=== PATIENT | female | born 1985 | race Caucasian/White ===

== ENCOUNTER 2021-09-30 13:11 | Emergency (ER) | payer OTHER, SELFPAY ==
[2021-09-30 14:51] VITALS: BP 145/74; PULSE 101; RESP 18; TEMP 37.2; O2SAT 99; BMI 30.1
[2021-09-30 15:57] LABS: COVID-19 Test Negative (Negative)
--- NOTE | 2021-09-30 15:58 | ED_ITS ---
HPI - Ear Problem General Chief complaint: Ear Problems Stated complaint: blocked ears Time Seen by Provider: 09/30/21 15:48 Source: patient Mode of arrival: ambulatory Limitations: no limitations History of Present Illness HPI Narrative: 36-year-old female who presents emergency department for evaluation of bilateral ear pain with drainage from both ears. The patient states that she uses Q-tips frequently in both ears. She states she was cleaning her ears today notice that there was a discharge in she could not hear to both ears. She also states she was having severe pain in both ears, she describes as a constant, sharp pain. The pain is 10/10. She does have decreased hearing in both ears. She denied fever, chills, rhinorrhea, sore throat, chest pain, shortness of breath. Related Data Previous Rx's Medication Instructions Recorded amoxicillin 500 mg capsule 1,000 mg PO BID 10 Days #40 cap 09/30/21 ciprofloxacin 0.3 %-dexamethasone 4 drp OTIC (EARS) BID 10 Days #7.5 09/30/21 0.1 % ear drops,suspension ml (Ciprodex) oxycodone 5 mg tablet 5 mg PO Q4H PRN #10 tab 09/30/21 Allergies Allergy/AdvReac Type Severity Reaction Status Date / Time No Known Allergies Allergy Verified 09/30/21 14:50 [No Known Allergies*] Review of Systems Review of Systems: Yes all other systems are reviewed and are negative [facility] Past Medical History [facility] Narrative: Past medical history: None. 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 Social history: She denies tobacco, alcohol and drug use. Medical History (Updated 09/30/21 @ 16:06 by Arnol Barron MD) Scoliosis Social History Social History Advance Directives: No Advance Directives Information Provided: No Patient : No Physical Exam Vital Signs: Vital Signs: Last Vital Signs Temp 99.0 F 09/30/21 14:51 Pulse 101 H 09/30/21 14:51 Resp 18 09/30/21 14:51 BP 145/74 H 09/30/21 14:51 Pulse Ox 99 09/30/21 14:51 BMI result Body Mass Index 30.1 Const: General: cooperative Nutritional Appearance: well nourished Orientation/consciousness: oriented to person and oriented to place HENMT: Other: Your exam: The patient has purulent discharge from both ears, both ear canals appear to be swollen and very tender to palpation tympanic membranes are not visualized secondary to her otitis externa Head: Yes normal to inspection, Yes normocephalic and Yes atraumatic General nose exam: Normal external nose present Face and sinus: Yes normal facial exam Mouth: Normal oral and palatal mucosa present Teeth and gingiva: dentition normal Throat: Yes posterior oropharynx normal Eyes: General: appearance normal, both eyes and all related structures Neck: Neck: Yes normal visual inspection, Yes full ROM, Yes no lymph adenopathy, Yes no meningeal signs and Yes trachea midline Chest: Chest palpation & inspection: normal inspection of the chest Resp: Effort & Inspection: normal respiratory effort Neuro: General: oriented to person, oriented to place and no meningeal signs Cranial nerves: Yes CN's II-XII intact bilaterally Extrem: General: Yes normal to inspection Psych: Appearance: grossly normal Course Course Course Narrative: 36-year-old female who presents emergency department for evaluation of bilateral ear pain with discharge in both ears. The patient does have decreased hearing in both ears. She states that she has been using Q-tips. Patient's vital signs revealed an elevated blood pressure of 145/74 and elevated pulse of 101, suspect this is secondary to her pain. Patient's exam is consistent with otitis externa both ears most likely secondary to her using Q- tips. I did discuss this with her. The patient will be started on Ciprodex otic drops 4 drops in each ear twice a day for 7 days. She also be started on amoxicillin 1000 mg twice a day for 10 days. Patient was advised to take Tylenol ibuprofen and for pain not relieved by these 2 medications she was prescribed oxycodone. She was given printed and verbal instructions and discharged home. She is follow-up with her PCP and I did give her the name of ENT that she may be able follow-up with his well however we do not have ENT on- call. MDM - Ear Lab Data Labs: Lab Results 09/30/21 Range/Units 15:32 COVID-19 ([facility]) Negative (Negative) COVID-19 Clin Com See Note Discharge Plan Discharge Clinical Impression: Otitis externa Patient Disposition: Home, Self-Care Instructions: Otitis Externa (ED) Additional Instructions: Use the Ciprodex ear drops, 4 drops in each ear twice a day for 7 days. Take amoxicillin 500 mg mg pills, take 2 pills twice a day for 10 days. Take ibuprofen 200 mg pills, 3 pills every 6 hours as needed for pain. Take Tylenol (acetaminophen) 500 mg pills, 2 pills every 4-6 hours as needed for pain. For pain not relieved by ibuprofen or Tylenol take oxycodone 5 mg pills, 1 pill every 4 hours as needed for pain. Do not drive or work while taking this medication since they can cause sleepiness. Oxycodone is a narcotic medication that can be addicting. If you are concerned about addiction you can ask the pharmacist for less pills or do not get this prescription filled. Follow-up with your doctor in 2 days. Please return to the emergency department if your symptoms get worse or if you develop any symptoms that are concerning to you. Prescriptions: New ciprofloxacin-dexamethasone [Ciprodex] 0.3-0.1 % drops,suspension 4 drp otic (ears) BID 10 Days Qty: 7.5 RF: 0 amoxicillin 500 mg capsule 1,000 mg PO BID 10 Days Qty: 40 RF: 0 oxycodone 5 mg tablet 5 mg PO Q4H PRN (Reason: pain) Qty: 10 RF: 0
== END 2021-09-30 16:22 | disposition home or self-care (01) ==
PROVIDERS: Emergency Provider Emergency Medicine Emergency Medical Services
DX: H60.93 Unspecified otitis externa, bilateral (principal); H92.03 Otalgia, bilateral; Z20.822 Contact with and (suspected) exposure to COVID-19
CPT/HCPCS: 87635; 99283